=== PATIENT | female | born 1980 | race African-American/Black ===

== ENCOUNTER 2018-02-09 16:10 | Emergency (ER) | payer OTHER ==
[2018-02-09 16:17] VITALS: BP 133/78; PULSE 75; TEMP 98.5; BMI 43.0
--- NOTE | 2018-02-09 16:24 | PDOC ---
History of Present Illness - General Chief Complaint: Headache Stated Complaint: HEAD FEEL HEAVY, NO PAIN - History of Present Illness Initial Comments: The patient is a 37F w/ a history of HTN and urinary retention who presents for evaluation of 2d of L-sided head 'pressure'. She states that for 5d prior to these 2 days she was experiencing a sensation of 'fluid' in her head. She denies any other symptoms and is unable to further describe/delineate the sensation. Today she denies any other associated symptoms. Denies vision changes , phono/photophobia. Denies fevers/chills, chest pain, SOB, abdominal pain, N/V/C/D, or changes in sensation 02/09/18 16:24 Past History - Past Medical History Allergies/Adverse Reactions: Allergies Allergy/AdvReac Type Severity Reaction Status Date / Time No Known Allergies Allergy Unverified 07/31/13 13:36 Home Medications: Ambulatory Orders Hctz - 02/09/18 Oxybutynin 02/09/18 COPD: No - Suicide/Smoking/Psychosocial Hx Smoking History: Never smoked Have you smoked in the past 12 months: No Information on smoking cessation initiated: No Hx Alcohol Use: No Drug/Substance Use Hx: No Review of Systems - Review of Systems Able to Perform ROS?: Yes Comments:: GENERAL/CONSTITUTIONAL: No fever or chills. No weakness HEAD, EYES, EARS, NOSE AND THROAT: No change in vision. No ear pain or discharge. No sore throat CARDIOVASCULAR: No chest pain or shortness of breath RESPIRATORY: Denies cough, hemoptysis GASTROINTESTINAL: No nausea, vomiting, diarrhea or constipation GENITOURINARY: No dysuria, frequency, or change in urination MUSCULOSKELETAL: No joint or muscle swelling or pain. No neck or back pain SKIN: No rash NEUROLOGIC: No vertigo, loss of consciousness, or change in strength/sensation ENDOCRINE: No increased thirst. No abnormal weight change HEMATOLOGIC/LYMPHATIC: No anemia, easy bleeding, or history of blood clots ALLERGIC/IMMUNOLOGIC: No hives or skin allergy 02/09/18 16:24 Is the patient limited Cymro proficient: No *Physical Exam - Vital Signs Last Vital Signs Temp Pulse Resp BP Pulse Ox 98.5 F 75 20 133/78 98 02/09/18 16:10 02/09/18 16:10 02/09/18 16:10 02/09/18 16:10 02/09/18 16:10 - Physical Exam Comments: GENERAL: Awake, alert, and fully oriented, in no acute distress HEAD: No signs of trauma, normocephalic, atraumatic EYES: PERRLA, EOMI, sclera anicteric, conjunctiva clear ENT: Hearing grossly normal, nares patent, oropharynx clear without exudates. Moist mucosa LUNGS: No distress, speaks full sentences, clear to auscultation bilaterally HEART: Regular rate and rhythm, normal S1 and S2, no murmurs appreciated, peripheral pulses normal and equal bilaterally ABDOMEN: Soft, nontender, normoactive bowel sounds. No guarding, no rebound EXTREMITIES : Normal inspection, Normal range of motion, no edema. No clubbing or cyanosis NEUROLOGICAL: Cranial nerves II through XII grossly intact. Normal speech, normal gait, no focal sensorimotor deficits SKIN: Warm, Dry, normal turgor, no rashes or lesions noted 02/09/18 16:25 Moderate Sedation - Procedure Monitoring Vital Signs: Procedure Monitoring Vital Signs Temperature 98.5 F 02/09/18 16:10 Pulse Rate 75 02/09/18 16:10 Respiratory Rate 20 02/09/18 16:10 Blood Pressure 133/78 02/09/18 16:10 O2 Sat by Pulse Oximetry (%) 98 02/09/18 16:10 ED Treatment Course - LABORATORY CBC & Chemistry Diagram: 02/09/18 17:25 02/09/18 17:25 Medical Decision Making - Medical Decision Making The patient is a 37F w/ a history of HTN and urinary retention who presents for evaluation of 2d of R sided head pressure and 5 preceding days of feeling like a 'fluid' is in her head. Possible rxn to oxybutynin, possible stress response 2/2 increased pressures ( e.g. being forced out of her home), possible intra-cranial lesion ED Course CMP, CBC, UA, Upreg CT head w/o 02/09/18 16:25 Plan to D/C oxybutynin as it is possible her neuro symptoms may be a result of its use Upreg neg 02/09/18 17:02 CT head performed, read pending 02/09/18 18:45 Lytes wnl No RAKESH LFTs wnl No leukocytosis Mild anemia, no need to transfuse at this time No evidence of UTI on UA 02/09/18 18:46 CT Head w/o acute pathology Plan for D/C w/ PCP f/u Discharge instructions and return precautions Patient in agreement and verbalizes understanding Dispo: home 02/09/18 18:53 *DC/Admit/Observation/Transfer Diagnosis at time of Disposition: Headache Qualifiers: Headache type: unspecified Headache chronicity pattern: unspecified pattern Intractability: not intractable Qualified Code(s): R51 - Headache - Discharge Dispostion Disposition: HOME Condition at time of disposition: Stable Decision to Admit order: No - Referrals Referrals: [facility] [place] [Provider Group] - Patient Instructions Additional Instructions: You were seen in the Emergency Department today for evaluation of right sided head pressure. Please follow up with your primary care provider. Discontinue your Oxybutynin for now. Return to the Emergency Department if you develop fevers/chill, worsening symptoms, vision changes, or new/concerning symptoms - Post Discharge Activity
--- NOTE | 2018-02-09 16:27 | PDOC ---
Attending Attestation - Resident Resident Name: TruptiSean neri - ED Attending Attestation I have performed the following: I have examined & evaluated the patient, The case was reviewed & discussed with the resident, I agree w/resident's findings & plan, Exceptions are as noted - HPI HPI: 02/09/18 17:05 Patient complains of a right-sided headache which she describes as a "fullness" or "pressure" for 2 days, and today developed a "metallic" taste in the right side of her mouth. Her only medications are hydrochlorothiazide and oxybutynin, which she started approximately one month ago. She has gained a lot of weight recently, has decided upon bariatric surgery, had admits to being under extreme stress due to losing her home and financial pressures. She has no other focal neurologic symptoms or unsteadiness of gait. No chest pain or shortness of breath. - Physicial Exam PE: 02/09/18 17:06 Vital signs are normal. Physical exam is entirely normal except for question of decreased venous pulsations and some blurring of the optic discs on funduscopic exam. This may be early papilledema or chest a variation of normal. No focal sensory or motor deficits. No unsteadiness of gait. - Medical Decision Making 02/09/18 17:08 Assessment: The patient's symptoms are most likely due to stress/anxiety, although the metallic taste is a little unusual. An idiosyncratic reaction to oxybutynin is possible. An intracranial mass is possible. Pseudotumor cerebri is also considered Plan: Head CT. If negative, stop oxybutynin, since it does not appear to be alleviating her symptoms. Further neurological evaluation. 02/09/18 18:49 CT examination of the head is negative. Symptoms are improved. Discharged to follow-up as directed. Fully ambulatory and in no significant distress.
[2018-02-09 17:44] LABS: URINE APPEARANCE Clear; URINE BILIRUBIN Negative (NEGATIVE); URINE COLOR Yellow; URINE GLUCOSE (UA) Negative (NEGATIVE); URINE KETONE Negative (NEGATIVE); URINE LEUK ESTERASE Negative (NEGATIVE); URINE NITRITE Negative (NEGATIVE); URINE PROTEIN 1+ (NEGATIVE); URINE UROBILINOGEN 0.2 (0.2-1.0)
[2018-02-09 17:49] LABS: HEMATOCRIT 33.5 % (32.4-45.2); HEMOGLOBIN 10.2 GM/dl (10.7-15.3); MCH 22.3 pg (25.7-33.7); MCHC 30.5 g/dl (32.0-36.0); MEAN CELL VOLUME 73.2 fl (80-96); MEAN PLT VOLUME 8.8 fl (7.5-11.1); PLATELET COUNT 402 K/MM3 (134-434); RBC 4.57 M/mm3 (3.60-5.2); RDW 20.7 % (11.6-15.6); WHITE BLOOD COUNT 5.2 K/mm3 (4.0-10.8)
[2018-02-09 17:50] LABS: HCG,QUALITATIVE URINE Negative
[2018-02-09 17:57] LABS: ALBUMIN 3.5 g/dl (3.5-5.0); ALK PHOS 37 U/L (32-92); ANION GAP 8 MMOL/L (8-16); BILIRUBIN,TOTAL 0.2 mg/dl (0.2-1.0); BLOOD UREA NITROGEN 15 mg/dl (7-18); CHLORIDE 103 mmol/L (98-107); CO2 28 mmol/L (22-28); CREATININE 0.8 mg/dl (0.6-1.3); GLUCOSE,RANDOM 86 mg/dl (74-106); POTASSIUM 3.6 mmol/L (3.5-5.1); SGOT/AST 17 U/L (10-42); SGPT/ALT 17 U/L (10-40); SODIUM 139 mmol/L (136-145); TOT PROT 7.1 g/dl (6.4-8.3)
[2018-02-09 18:03] LABS: AMORP URATES 1+ /hpf (NONE SEEN); EPI CELLS 2+ /HPF; URINE BACTERIA 1+ /hpf (NEGATIVE); URINE WBC 0-2 (0-5)
== END 2018-02-09 19:24 | disposition home or self-care (01) ==
LOC: FER 16:10
DX: R51 Headache (principal); I10 Essential (primary) hypertension
CPT/HCPCS: 36415; 70450-TC; 80053; 81003; 81015; 84703; 85027; 99281-25

== ENCOUNTER 2018-07-23 16:53 | Observation (INO) | payer OTHER ==
--- NOTE | 2018-07-23 17:10 | PDOC ---
Rapid Medical Evaluation Time Seen by Provider: 07/23/18 16:57 Medical Evaluation: Allergies Allergy/AdvReac Type Severity Reaction Status Date / Time No Known Allergies Allergy Unverified 07/31/13 13:36 07/23/18 17:04 I have performed a brief in-person evaluation of this patient. The patient presents with a chief complaint of: left arm numbness "after stabbing pain to left head", gastric sleeve surgery 06/09/18, recent travel to [place] on July 02, denies OCPs Pertinent physical exam findings: well appearing, NAD I have ordered the following: labs The patient will proceed to the ED for further evaluation.
[2018-07-23 17:15] VITALS: BMI 38.7
[2018-07-23 17:50] LABS: BASO % 0.6 % (0-2.0); EOS % 1.2 % (0-4.5); HEMATOCRIT 33.8 % (32.4-45.2); HEMOGLOBIN 10.5 GM/dL (10.7-15.3); LYMPH % 29.5 % (8-40); MCH 23.6 pg (25.7-33.7); MEAN CELL VOLUME 75.9 fl (80-96); MONO % 3.6 % (3.8-10.2); NEUT % 65.1 % (42.8-82.8); PLATELET COUNT 391 K/MM3 (134-434); RBC 4.45 M/mm3 (3.60-5.2); RDW 19.2 % (11.6-15.6)
[2018-07-23 18:45] LABS: ALBUMIN 3.5 g/dl (3.4-5.0); BILIRUBIN,TOTAL 0.2 mg/dL (0.2-1); CALCIUM 9.1 mg/dL (8.5-10.1); CREATININE 0.7 mg/dL (0.55-1.3); TOT PROT 7.2 g/dl (6.4-8.2)
--- NOTE | 2018-07-23 19:07 | PDOC ---
History of Present Illness - General Chief Complaint: CVA/TIA Stated Complaint: STABING HEADACE PAIN Time Seen by Provider: 07/23/18 16:57 - History of Present Illness Initial Comments: 38yo F with PMH of HTN, anemia presenting with headache and strange sensation on her left side. Patient states that around 2:30pm she felt a stabbing sensation on the left side of the back of her head that lasted for two minutes. The headache is gone, but since that time she has felt weakness on her left upper extremity described as such: "you know, after a hard workout, you feel weak the next day." She does not usually get headaches. Never had anything like this before. No fevers, chills, chest pain, or shortness of breath. PCP: Dr. Gambino tPA Exclusion checklist 3-4.5h - Time Elapsed Date last known well: 07/23/18 Time last known well: 14:30 Elaspsed time: Day(s) and 16 Hour(s) and 32 Minutes - Thrombolytic Therapy Candidate Is patient eligible for thrombolytic therapy: No - Relative Exclusion Criteria 3-4.5 hr Stroke severity too mild: Yes - Ineligibility reason(s) Reasons No tPA given: Outside of window - delayed arrival NIH Stroke Scale - Last Known Well Date/Time & Onset Date Last Known Well: 07/23/18 Time Last Known Well: 14:30 - Initial Evaluation Level of consciousness: Alert Ask patient the month and their age: Answers both correctly Ask patient to open & close eyes; make fist and let go: Obeys both correctly Best gaze (horizontal eye movement): Normal Visual field testing: No visual field loss Facial paresis (Show teeth/raise eyebrows/close eyes tight): Normal symmetrical movement Motor Function: Left Arm: Normal Motor Function: Right Arm: Normal (extends arm 90 (or 45) degrees for 10 seconds without drift Motor Function: Left Leg: Normal (extends leg 30 degrees for 5 seconds without drift) Motor Function: Right Leg: Normal (extends leg 30 degrees for 5 seconds without drift) Limb Ataxia: No ataxia Sensory(Use pinprick test arms,legs,trunk,face/side to side): Mild to moderate decrease in sensation Best language (Describe picture, name items, read sentences): No Aphasia Dysarthria (read several words): Normal articulation Extinction and Inattention: No abnormality - Total Score NIH Stroke Scale Score: 1 Past History - Past Medical History Allergies/Adverse Reactions: Allergies Allergy/AdvReac Type Severity Reaction Status Date / Time No Known Allergies Allergy Verified 07/23/18 17:05 Home Medications: Ambulatory Orders Hctz - 02/09/18 Oxybutynin 02/09/18 COPD: No HTN: Yes - Suicide/Smoking/Psychosocial Hx Smoking History: Never smoked Have you smoked in the past 12 months: No Information on smoking cessation initiated: No Hx Alcohol Use: No Drug/Substance Use Hx: No Review of Systems - Review of Systems Comments:: Constitutional: no fever, no chills HEENT: no throat pain, no dysphagia Cardiovascular: no chest pain, no palpitations Respiratory: no cough, no shortness of breath Gastrointestinal: no abdominal pain, no nausea Genitourinary: no dysuria, no frequency Musculoskeletal: no myalgia, no arthralgia Skin: no rash, no itching Neurologic: +headache, +abnormal sensation on LUE *Physical Exam - Vital Signs Last Vital Signs Temp Pulse Resp BP Pulse Ox 97.5 F L 63 16 131/75 99 07/23/18 17:05 07/23/18 17:05 07/23/18 17:05 07/23/18 17:05 07/23/18 17:05 - Physical Exam Comments: General: Awake, alert, and fully oriented, in no acute distress Head: No signs of trauma Eyes: EOMI, sclera anicteric ENT: Moist mucus membranes Neck: Normal ROM, supple Lungs: Lungs clear, Normal breath sounds Cardio: Regular rhythm, S1 and S2 present Abdomen: Soft, nontender Extremities: Normal range of motion, Distal pulses present SKIN: Warm, Dry, normal turgor Neurologic: Cranial nerves II through XII intact. Normal speech, strength, coordination, and gait. Abnormal sensation on LUE. ED Treatment Course - LABORATORY CBC & Chemistry Diagram: 07/24/18 06:00 07/23/18 17:27 - ADDITIONAL ORDERS Additional order review: Laboratory Results 07/23/18 07/23/18 07/23/18 17:35 17:27 17:27 D-Dimer 585 H Sodium 139 Potassium 4.0 Chloride 109 H Carbon Dioxide 24 Anion Gap 7 L BUN 11 Creatinine 0.7 Est GFR (CKD-EPI)AfAm 125.61 Est GFR (CKD-EPI)NonAf 108.38 Random Glucose 122 H Calcium 9.1 Total Bilirubin 0.2 AST 19 ALT 27 Alkaline Phosphatase 61 Total Protein 7.2 Albumin 3.5 Urine HCG, Qual Negative 07/23/18 17:27 RBC 4.45 MCV 75.9 L MCHC 31.0 L RDW 19.2 H MPV 9.0 Neutrophils % 65.1 Lymphocytes % 29.5 Monocytes % 3.6 L Eosinophils % 1.2 Basophils % 0.6 Medical Decision Making - Medical Decision Making 38yo F with PMH of HTN, anemia presenting with headache and strange sensation on her left side. DDX including but not limited to chronic migraine, CVA/TIA, brain bleed D-dimer elevated, CTA ordered Please see NIHSS Not a TPA candidate given low NIHSS and outside of window 07/23/18 19:33 Chest CTA: "Sequential axial images were obtained from the thoracic inlet through the domes of the diaphragm following the administration of intravenous contrast material. CTA pulmonary embolism protocol was utilized, including coronal and oblique coronal MIP images. There is suboptimal opacification of the central pulmonary vasculature, however, there are no no filling defects suspicious for pulmonary embolism. The lung villeda are free of pulmonary masses , areas of acute consolidation or pleural effusions. No mediastinal masses, fluid collections or lymphadenopathy are identified. The heart is not enlarged. There is no evidence of thoracic aortic aneurysm or dissection. Evaluation of the upper abdomen demonstrates no acute abnormalities. IMPRESSION: Normal CT scan of the chest with no evidence of pulmonary embolism or acute pathology. " Head CT: "Sequential axial images were obtained from the base of the skull to the vertex. There is no evidence of acute intracranial hemorrhage, mass lesions or infarctions. IMPRESSION: Normal CT scan of the head with no evidence of acute intracranial pathology. " EKG: rate 54, QTc 413, sinus bradycardia 07/23/18 21:[address] Bal, neurologist. He has a lower suspicion for CVA/ TIA given patient's age and presentation, however since she does have risk factors of HTN and obesity, does recommend an MRI. Plan to admit 07/23/18 22:[address] Hardwick who accepted patient for admission under Dr. Paul 07/23/18 22:38 Patient asking to leave AMA. Benefits/risks explained and patient voiced understanding. 07/24/18 02:23 Patient changed her mind and wants to stay now. 07/24/18 02:41 Patient concerned for hydration status given recent gastric sleeve. Maintenance fluids ordered. 07/24/18 02:48 *DC/Admit/Observation/Transfer Diagnosis at time of Disposition: Cerebrovascular accident (CVA), Left against medical advice - Discharge Dispostion Disposition: AGAINST MEDICAL ADVICE Condition at time of disposition: Guarded Decision to Admit order: Yes - Referrals - Patient Instructions - Post Discharge Activity
[2018-07-23] MEDS ORDERED: SODIUM CHLORIDE 0.9% 1000 ML INFUS.BAG IV ONE (19:10)
[2018-07-23] MEDS ORDERED: ACETAMINOPHEN 1000 MG/100 ML VIAL (NON FORMULARY) IVPB ONE (19:10)
[2018-07-23] MEDS ORDERED: METOCLOPRAMIDE HCL INJECTION 10 MG/2 ML VIAL IVPUSH ONE (19:38)
[2018-07-23] MEDS ORDERED: METOCLOPRAMIDE HCL INJECTION 10 MG/2 ML VIAL ONE (19:48)
[2018-07-23] MEDS ORDERED: ACETAMINOPHEN INJECTION 100 ML IVPB ONE (19:49)
--- NOTE | 2018-07-23 20:14 | PDOC ---
Documentation entered by Montse Patten SCRIBE, acting as scribe for Delfina Velázquez DO. Delfina Velázquez DO: This documentation has been prepared by the [employer] [place] [employer], SCRIBE, under my direction and personally reviewed by me in its entirety. I confirm that the documentation accurately reflects all work, treatment, procedures, and medical decision making performed by me. Attending Attestation - Resident Resident Name: Elba Hernandez - ED Attending Attestation I have performed the following: I have examined & evaluated the patient, The case was reviewed & discussed with the resident, I agree w/resident's findings & plan - HPI HPI: 07/23/18 19:53 The patient is a 38YOF with PMH of HTN, anemia, and gastric sleeve on 06/09/18 who presents to the ER for a stabbing sensation headache and numbness to her left arm today. Patient reports recently returning from [place]. Denies cp, sob, fever, chills, N/V/D/C, or urinary symptoms. Allergies: NKDA - Physicial Exam PE: 07/23/18 19:56 ADULT PHYSICAL EXAM Constitutional: Awake, alert, oriented. No acute distress. Neck: Supple. Full ROM. No lymphadenopathy. Cardiovascular: Regular rate. Regular rhythm. S1, S2 regular. Distal pulses are 2+ and symmetric. Pulmonary/Chest: No evidence of respiratory distress. Clear to auscultation bilaterally No wheezing, rales or rhonchi. Abdominal: Soft and non-distended. (+) Mild epigastric tenderness; improving since surgery. No rebound, guarding or rigidity. Good bowel sounds. Back: No C, T, or L tenderness. Musculoskeletal: 5/5 strength. (+) Sensation diminished of the left arm, from shoulder down. All other extremities are normal. No edema. No cyanosis. No clubbing. No calf tenderness. Radial/pedal pulses are intact and 2+ bilaterally Skin: Skin is warm and dry. Neurological: Headache has resolved. Cranial nerves II-XII are grossly intact. Normal speech. Strength is grossly symmetric. No sensory deficits. Psychiatric: Good eye contact. Normal interaction, affect and behavior. - Medical Decision Making 07/23/18 20:12 I, Dr. Delfina Velázquez DO, attest that this document has been prepared under my direction and personally reviewed by me in its entirety. I further attest, that it accurately reflects all work, treatment, procedures and medical decision -making performed by me. 07/23/18 20:12 a/p: 38yo female with licea and l arm numbness -had a 2 minute acute onset of stabbing licea which resolved spontaneously - developed L arm numbness during the event which has not gone away -1m s/p gastric sleeve surgery at [facility] -no f/c, no neck pain -no weakness, no slurred speech -still with decreased sensation to L arm -will send for head ct -labs from [facility] reviewed, elevated dimer- no cp/sob, will obtain cta chest given L arm discomfort -will give ivf hydraiton, meds -will monitor and reassess -no tpa given mild symptoms, out of window, and recent sx 07/23/18 21:54 no acute pe on chest ct normal head ct resident discussed the case with Dr. Bal 07/23/18 22:25 pt agreeable to stay for MRI head microblog sent to [facility] for obs
[2018-07-23] MEDS ORDERED: ACETAMINOPHEN 325 MG TABLET (FP) PO PRN (22:40)
--- NOTE | 2018-07-23 22:46 | HP ---
Admitting History and Physical - Primary Care Physician PCP: Gerald Gambino - Admission Chief Complaint: Haed ache with numbness History of Present Illness: 38 yrs old F morbidly obese s/p Gastric sleeve surgery on 06/09/2018 at [facility], HTN, today present with acuute onset Left sided occipital head ache 10/10, stabbing lasted 2 minutes, resolved subsequently developed Left UE numbness taht lasted few hours ultimately resolved came to Ed for evaluation, hemodynamically stable , non focal neuro-exam, denies any visual changes, LOC, dysarthria, vertigo or diplopia , never had similar head ache denies any H/O migraine in the past, in the ED CT haed no acute changes. Neurology is consulted in the ED recommended MRI. History Source: Patient - Past Medical History Cardiovascular: Yes: HTN - Past Surgical History Past Surgical History: Yes: Bariatric Surgery - Smoking History Smoking history: Never smoked Have you smoked in the past 12 months: No - Alcohol/Substance Use Hx Alcohol Use: No - Social History Usual Living Arrangement: Yes: With Spouse Home Medications - Allergies Allergies/Adverse Reactions: Allergies Allergy/AdvReac Type Severity Reaction Status Date / Time No Known Allergies Allergy Verified 07/23/18 17:05 - Home Medications Home Medications: Ambulatory Orders Hctz - 02/09/18 Oxybutynin 02/09/18 Family Disease History - Family Disease History Family Disease History: Heart Disease: Father (HTN) Review of Systems - Review of Systems Constitutional: denies: Chills, Diaphoresis, Fever, Lethargy Eyes: denies: Blind Spots, Blurred Vision, Double Vision, Floaters, Photophobia , Recent Change in Vision HENT: denies: Difficult Swallowing, Ear Discharge, Ear Pain, Epistaxis, Hearing Loss, Nasal Congestion Neck: denies: Decreased ROM, Lumps, Pain on Movement Cardiovascular: denies: Chest Pain, Edema, Palpitations, Shortness of Breath Respiratory: denies: Cough, Exercise Intolerance, Hemoptysis, Orthopnea Gastrointestinal: denies: Abdominal Pain, Bloating, Constipation, Diarrhea Genitourinary: denies: Burning, Discharge, Dysuria, Flank Pain Musculoskeletal: denies: Back Pain, Crepitus, Decreased ROM Integumentary: denies: Blister, Bruising, Change in Color Neurological: reports: Numbness, Parasthesia. denies: Change in LOC, Change in Speech, Confusion Endocrine: denies: Excessive Sweating, Flushing, Increased Hunger Hematology/Lymphatic: denies: Easily Bruised, Excessive Bleeding, Swollen Glands Pain Intensity: 3 Physical Examination Vital Signs: Vital Signs Temperature 97.5 F L 07/23/18 17:05 Pulse Rate 63 07/23/18 17:05 Respiratory Rate 16 07/23/18 17:05 Blood Pressure 131/75 07/23/18 17:05 O2 Sat by Pulse Oximetry (%) 99 07/23/18 17:05 Young F comfortable HEENT: Mm moist, no anemia, PERRLA EOMI NECK: No JVD No Bruit CHEST: CTA B/L CVS: S1S2 R no m/g/r ABD: No distention, non tender EXT: No edema feet SPA HOST: AOX3 non focal Labs: CBC, BMP 07/23/18 17:27 07/23/18 17:27 Imaging - Results Cat Scan: Report Reviewed (Head;' normal CTA Chest: No PE no Dissection) EKG: Report Reviewed ([address] T chnages) Problem List - Problems (1) Headache Assessment/Plan: Possibality of acute hemiplegic migraine now resolved F/U Neuro recommendations and MRI result, F/U ECHO, Lipid Panel, TSH, ECHO, carotid Doppler, neurocheck, add ASA after MRI result Code(s): R51 - HEADACHE Qualifiers: Headache type: unspecified Headache chronicity pattern: unspecified pattern Intractability: not intractable Qualified Code(s): R51 - Headache (2) Numbness Assessment/Plan: Resolved can be due to hemiplegic migraine cont current medication at home. Code(s): R20.0 - ANESTHESIA OF SKIN (3) Obesity (BMI 30-39.9) Assessment/Plan: S/P Gastric Sleeve surgery lost 30 Lbs i since 06/2018 Code(s): E66.9 - OBESITY, UNSPECIFIED (4) HTN (hypertension) Assessment/Plan: at present well controlled on amlodipine 5 mg at home. Code(s): I10 - ESSENTIAL (PRIMARY) HYPERTENSION
[2018-07-24] MEDS ORDERED: SODIUM CHLORIDE 1,000 ML IV SCH (03:00)
[2018-07-24 06:24] LABS: BASO % 0.5 % (0-2.0); EOS % 1.8 % (0-4.5); HEMOGLOBIN 9.3 GM/dL (10.7-15.3); LYMPH % 35.7 % (8-40); MCHC 31.9 g/dl (32.0-36.0); MEAN CELL VOLUME 75.1 fl (80-96); MEAN PLT VOLUME 8.6 fl (7.5-11.1); MONO % 6.8 % (3.8-10.2); NEUT % 55.2 % (42.8-82.8); PLATELET COUNT 350 K/MM3 (134-434); RBC 3.87 M/mm3 (3.60-5.2); RDW 18.9 % (11.6-15.6); WHITE BLOOD COUNT 4.4 K/mm3 (4.0-10.0)
[2018-07-24 07:03] LABS: BILIRUBIN,TOTAL 0.2 mg/dL (0.2-1); CALCIUM 8.2 mg/dL (8.5-10.1); CREATININE 0.7 mg/dL (0.55-1.3); TOT PROT 6.2 g/dl (6.4-8.2)
[2018-07-24 09:37] VITALS: BP 138/74; PULSE 58; TEMP 98.4
--- NOTE | 2018-07-24 09:37 | CONSULT ---
Consult - text type - Consultation Consultation Note: Neurology History and Physical - Primary Care Physician PCP: Gerald Gambino - Admission Chief Complaint: Headache with numbness History of Present Illness: 38 yrs old F morbidly obese s/p Gastric sleeve surgery on 06/09/2018 at [facility], HTN, presented with acuute onset Left sided occipital head ache 10/10, stabbing lasted 2 minutes, resolved subsequently developed Left UE numbness that lasted few hours ultimately resolved. She came to Ed for evaluation, hemodynamically stable, non focal neuro-exam, denies any visual changes, LOC, dysarthria, vertigo or diplopia , never had similar head ache denies any H/O migraine in the past, in the ED CT haed no acute changes. she was admitted for further evaluation and management and this morning does not have any deficits and no symptoms. At this point I do not feel she requires MRI of the brain and therefore discussed discharge with her and she was in agreement. She will follow-up with me as an outpatient. She does not routinely get headaches and advised [id number] NSAIDs if recurrence of headache. History Source: Patient - Past Medical History Cardiovascular: Yes: HTN - Past Surgical History Past Surgical History: Yes: Bariatric Surgery - Smoking History Smoking history: Never smoked Have you smoked in the past 12 months: No - Alcohol/Substance Use Hx Alcohol Use: No - Social History Usual Living Arrangement: Yes: With Spouse Home Medications - Allergies Allergies/Adverse Reactions: Allergies Allergy/AdvReac Type Severity Reaction Status Date / Time No Known Allergies Allergy Verified 07/23/18 17:05 - Home Medications Home Medications: Ambulatory Orders Hctz - 02/09/18 Oxybutynin 02/09/18 Family Disease History - Family Disease History Family Disease History: Heart Disease: Father (HTN) Review of Systems - Review of Systems Constitutional: denies: Chills, Diaphoresis, Fever, Lethargy Eyes: denies: Blind Spots, Blurred Vision, Double Vision, Floaters, Photophobia , Recent Change in Vision HENT: denies: Difficult Swallowing, Ear Discharge, Ear Pain, Epistaxis, Hearing Loss, Nasal Congestion Neck: denies: Decreased ROM, Lumps, Pain on Movement Cardiovascular: denies: Chest Pain, Edema, Palpitations, Shortness of Breath Respiratory: denies: Cough, Exercise Intolerance, Hemoptysis, Orthopnea Gastrointestinal: denies: Abdominal Pain, Bloating, Constipation, Diarrhea Genitourinary: denies: Burning, Discharge, Dysuria, Flank Pain Musculoskeletal: denies: Back Pain, Crepitus, Decreased ROM Integumentary: denies: Blister, Bruising, Change in Color Neurological: reports: Numbness, Parasthesia. denies: Change in LOC, Change in Speech, Confusion Endocrine: denies: Excessive Sweating, Flushing, Increased Hunger Hematology/Lymphatic: denies: Easily Bruised, Excessive Bleeding, Swollen Glands Pain Intensity: 3 Physical Examination Vital Signs Period Temp Pulse Resp BP Sys/Lawson Pulse Ox Last 24 Hr 97.5 F-98.4 F 58-63 16-20 131-138/74-75 99-100 Constitutional: Yes: No Distress, Calm Eyes: Yes: Conjunctiva Clear HENT: Yes: Atraumatic Neck: Yes: Supple Cardiovascular: No: Regular Rate and Rhythm Respiratory: Yes: CTA Bilaterally Gastrointestinal: Yes: Soft. No: Tenderness Renal/: No: CVA Tenderness - Left, CVA Tenderness - Right, Hematuria Extremities: No: Cold, Cool, Cyanosis Edema: No Integumentary: No: Rash, Venous Stasis Changes Neurological: cranial nerves intact, no slurred speech, strength equal bilaterally in upper and lower extremities sensory intact, finger to nose normal , gait deferred CBCD WBC 4.4 K/mm3 (4.0-10.0) 07/24/18 06:00 RBC 3.87 M/mm3 (3.60-5.2) 07/24/18 06:00 Hgb 9.3 GM/dL (10.7-15.3) L 07/24/18 06:00 Hct 29.0 % (32.4-45.2) L 07/24/18 06:00 MCV 75.1 fl (80-96) L 07/24/18 06:00 MCHC 31.9 g/dl (32.0-36.0) L 07/24/18 06:00 RDW 18.9 % (11.6-15.6) H 07/24/18 06:00 Plt Count 350 K/MM3 (134-434) 07/24/18 06:00 MPV 8.6 fl (7.5-11.1) 07/24/18 06:00 CMP Sodium 142 mmol/L (136-145) 07/24/18 06:00 Potassium 4.0 mmol/L (3.5-5.1) 07/24/18 06:00 Chloride 112 mmol/L (98-107) H 07/24/18 06:00 Carbon Dioxide 26 mmol/L (21-32) 07/24/18 06:00 Anion Gap 5 MMOL/L (8-16) L 07/24/18 06:00 BUN 9 mg/dL (7-18) 07/24/18 06:00 Creatinine 0.7 mg/dL (0.55-1.3) 07/24/18 06:00 Random Glucose 85 mg/dL (74-106) 07/24/18 06:00 Calcium 8.2 mg/dL (8.5-10.1) L 07/24/18 06:00 Total Bilirubin 0.2 mg/dL (0.2-1) 07/24/18 06:00 AST 10 U/L (15-37) L 07/24/18 06:00 ALT 22 U/L (13-61) 07/24/18 06:00 Alkaline Phosphatase 48 U/L (45-117) 07/24/18 06:00 Total Protein 6.2 g/dl (6.4-8.2) L 07/24/18 06:00 Albumin 3.0 g/dl (3.4-5.0) L 07/24/18 06:00 Imaging - Results Cat Scan: Report Reviewed (Head;' normal CTA Chest: No PE no Dissection) Plan 38 yrs old F morbidly obese s/p Gastric sleeve surgery on 06/09/2018 at [facility], HTN, presented with acuute onset Left sided occipital head ache 10/10, stabbing lasted 2 minutes, resolved subsequently developed Left UE numbness that lasted few hours ultimately resolved. She came to Ed for evaluation, hemodynamically stable, non focal neuro-exam, denies any visual changes, LOC, dysarthria, vertigo or diplopia , never had similar head ache denies any H/O migraine in the past, in the ED CT haed no acute changes. she was admitted for further evaluation and management and this morning does not have any deficits and no symptoms. At this point I do not feel she requires MRI of the brain and therefore discussed discharge with her and she was in agreement. She will follow-up with me as an outpatient. She does not routinely get headaches and advised [id number] NSAIDs if recurrence of headache. Monitor blood pressure, maintain normotensive range. Will d/c MRI. Patient in agreement. Ok for discharge from neuro point of view. Discussed with nurse.
--- NOTE | 2018-07-24 10:32 | DS ---
Physical Examination Vital Signs: Vital Signs Temperature 98.4 F 07/24/18 09:35 Pulse Rate 58 L 07/24/18 09:35 Respiratory Rate 20 07/24/18 09:35 Blood Pressure 138/74 07/24/18 09:35 O2 Sat by Pulse Oximetry (%) 100 07/24/18 09:35 Constitutional: Yes: No Distress, Calm Cardiovascular: Yes: Regular Rate and Rhythm Respiratory: Yes: CTA Bilaterally Gastrointestinal: Yes: Normal Bowel Sounds, Soft, Abdomen, Obese. No: Tenderness Edema: No Labs: CBC, BMP 07/24/18 06:00 07/24/18 06:00 Discharge Summary Reason For Visit: headache intractable Current Active Problems Cerebrovascular accident (CVA) (Acute) HTN (hypertension) (Acute) Left against medical advice (Acute) Numbness (Acute) Obesity (BMI 30-39.9) (Acute) Hospital Course: HISTORY - Admission Chief Complaint: Head ache with numbness History of Present Illness: 38 yrs old F morbidly obese s/p Gastric sleeve surgery on 06/09/2018 at [facility], HTN, today present with acute onset Left sided occipital head ache 10/10, stabbing lasted 2 minutes, resolved subsequently developed Left UE numbness that lasted few hours ultimately resolved came to Ed for evaluation, hemodynamically stable , non focal neuro-exam, denies any visual changes, LOC, dysarthria, vertigo or diplopia , never had similar head ache denies any H/O migraine in the past, in the ED CT head no acute changes. Neurology is consulted in the ED recommended MRI. Pt examined by me in the ER She was evaluated by neurology Currently has no headaches, visual complaints, weakness, dizziness, chest pain No nausea She received iv fluids and feels better MRI cancelled by Neurology Advised to follow up as outpt no left sided weakness D dimer was elevated-- CT chest with contrast -- negative for PE will cancel carotid doppler and Echo Follow up with Dr pinon on discharge May do carotid doppler and echo as outpt stable for dc home followup with PMD Condition: Good - Instructions Referrals: Estrada Pinon MD [Staff Physician] - Disposition: HOME - Home Medications Comprehensive Discharge Medication List: Ambulatory Orders Hctz - 02/09/18 Oxybutynin 02/09/18
--- NOTE | 2018-07-24 13:12 | EKG ---
Test Reason : Blood Pressure : / mmHG Vent. Rate : 054 BPM Atrial Rate : 054 BPM P-R Int : 158 ms QRS Dur : 094 ms QT Int : 436 ms P-R-T Axes : 040 055 054 degrees QTc Int : 413 ms SINUS BRADYCARDIA OTHERWISE NORMAL ECG WHEN COMPARED WITH ECG OF 12-JAN-2005 11:42, NO SIGNIFICANT CHANGE WAS FOUND Confirmed by ANDRES HOOD MD ([id number]) on 07/24/2018 1:11:47 PM Referred By: Confirmed By:ANDRES HOOD MD
== END 2018-07-24 12:56 | disposition home or self-care (01) ==
LOC: JER 16:53 → JERBED 22:15
PROVIDERS: ADMIT Internal Medicine; ATTEND Internal Medicine
PROC: 3E033NZ Introduction of Analgesics, Hypnotics, Sedatives into Peripheral Vein, Percutaneous Approach (ICD-10-PCS; principal; 2018-07-23)
PROC: 3E0337Z Introduction of Electrolytic and Water Balance Substance into Peripheral Vein, Percutaneous Approach (ICD-10-PCS; 2018-07-23)
PROC: 3E033GC Introduction of Other Therapeutic Substance into Peripheral Vein, Percutaneous Approach (ICD-10-PCS; 2018-07-23)
DX: R51 Headache (principal); I63.9 Cerebral infarction, unspecified; I10 Essential (primary) hypertension; D64.9 Anemia, unspecified; R20.0 Anesthesia of skin; E66.9 Obesity, unspecified; Z68.38 Body mass index [BMI] 38.0-38.9, adult
CPT/HCPCS: 96374; 96375; Z6838; 36415; 70450-TC; 71275-TC; 80053; 80061; 83036; 83721; 84443; 84703; 85025; 85379; 93005; 93010; 99285-25; G0378; J0131; J7030

== ENCOUNTER 2021-04-28 14:38 | Emergency (ER) | payer OTHER ==
[2021-04-28 14:49] VITALS: BP 116/75; PULSE 87; TEMP 98.3; BMI 32.3
[2021-04-28 15:53] LABS: URINE APPEARANCE CLEAR; URINE BILIRUBIN NEGATIVE (NEGATIVE); URINE COLOR YELLOW; URINE GLUCOSE (UA) NEGATIVE (NEGATIVE); URINE KETONE TRACE (NEGATIVE); URINE LEUK ESTERASE NEGATIVE (NEGATIVE); URINE NITRITE NEGATIVE (NEGATIVE); URINE PROTEIN TRACE (NEGATIVE)
[2021-04-28 15:55] LABS: HCG,QUALITATIVE URINE Negative
[2021-04-28] MEDS ORDERED: KETOROLAC TROMETHAMINE 60 MG/2 ML VIAL IM ONE (16:00)
[2021-04-28] MEDS ORDERED: KETOROLAC TROMETHAMINE 60 MG/2 ML VIAL ONE (17:09)
[2021-04-28 17:53] LABS: BASO % 0.8 % (0-2.0); EOS % 0.4 % (0-4.5); HEMATOCRIT 31.9 % (32.4-45.2); HEMOGLOBIN 10.3 GM/dL (10.7-15.3); LYMPH % 28.6 % (8-40); MCHC 32.4 g/dl (32.0-36.0); MEAN CELL VOLUME 80.4 fl (80-96); MEAN PLT VOLUME 8.8 fl (7.5-11.1); MONO % 6.2 % (3.8-10.2); PLATELET COUNT 356 10^3/uL (134-434); RBC 3.97 M/mm3 (3.60-5.2); RDW 15.2 % (11.6-15.6); WHITE BLOOD COUNT 4.5 K/mm3 (4.0-10.0)
[2021-04-28 18:00] LABS: INR 1.03 (0.83-1.09); PROTHROMBIN TIME (PATIENT) 11.8 SEC (9.7-13.0)
[2021-04-28 18:11] LABS: CALCIUM 9.7 mg/dL (8.5-10.1)
[2021-04-28 18:13] LABS: BLOOD UREA NITROGEN 14.1 mg/dL (7-18)
[2021-04-28 18:16] LABS: CREATININE 0.8 mg/dL (0.55-1.3); TOT PROT 7.6 g/dl (6.4-8.2)
[2021-04-28 18:17] LABS: BILIRUBIN,TOTAL 0.2 mg/dL (0.2-1)
== END 2021-04-28 19:39 | disposition home or self-care (01) ==
LOC: JER 14:38
PROC: 3E0233Z Introduction of Anti-inflammatory into Muscle, Percutaneous Approach (ICD-10-PCS; principal; 2021-04-28)
DX: R10.2 Pelvic and perineal pain (principal); D25.9 Leiomyoma of uterus, unspecified
CPT/HCPCS: 36415; 76830-TC; 80053; 81003; 84703; 85025; 85610; 86850; 86900; 86901; 87086; 87491; 87591; 99284-25